=== PATIENT | female | born 1980 ===

== ENCOUNTER 2021-03-31 12:00 | Inpatient (IN) | payer OTHER ==
[~2021-03-31] VITALS: Ht 165.1 cm; Wt 52.2 kg
[2021-04-14] MEDS ORDERED: INTEGRA F CAPS1 EAC1 (08:42)
[2021-04-14] MEDS ORDERED: SPRINTEC 28 DA1 EACH (08:42)
[2021-04-14] MEDS ORDERED: NAPR500T14 PO (09:03)
[2021-04-14] MEDS ORDERED: Tylenol #3 PO (09:03)
== END 2021-04-14 10:11 | disposition home or self-care (01) | DRG 743 ==
LOC: OB/GYN 04-06 12:00 → O/R 04-13 06:31 → SURG-SUITE 04-13 06:31
PROVIDERS: ADMIT Obstetrics & Gynecology; ATTEND Obstetrics & Gynecology
PROC: 0UQF0ZZ Repair Cul-de-sac, Open Approach (ICD-10-PCS; 2021-04-13)
PROC: 0USG0ZZ Reposition Vagina, Open Approach (ICD-10-PCS; 2021-04-13)
PROC: 0TJB8ZZ Inspection of Bladder, Via Natural or Artificial Opening Endoscopic (ICD-10-PCS; 2021-04-13)
PROC: 0UT97ZZ Resection of Uterus, Via Natural or Artificial Opening (ICD-10-PCS; principal; 2021-04-13 10:00)
DX: N92.0 Excessive and frequent menstruation with regular cycle (principal); N81.11 Cystocele, midline; N72 Inflammatory disease of cervix uteri

== ENCOUNTER → 2021-04-13 06:18 | Outpatient (CLI) | payer OTHER ==
[~2021-04-13 06:18] MED LIST: INTEGRA F CAPS1 EAC1; NAPR500T14 PO; SPRINTEC 28 DA1 EACH; Tylenol #3 PO
== END | disposition home or self-care (01) ==
LOC: LAB 06:18
PROVIDERS: ATTEND Obstetrics & Gynecology
DX: Z03.818 Encounter for observation for suspected exposure to other biological agents ruled out (principal); Z20.828 Contact with and (suspected) exposure to other viral communicable diseases